=== PATIENT | female | born 1990 | race Caucasian/White ===

== ENCOUNTER 2022-08-04 13:53 | Emergency (ER) | payer OTHER ==
[~2022-08-04] VITALS: Ht 144.8 cm; Wt 99.8 kg
[2022-08-04] MEDS ORDERED: KETOROLAC 30MG VIAL (30MG/ML) IM ONE (16:00)
[2022-08-04] MEDS ORDERED: CYCL10TA16 PO (17:23)
[2022-08-04 17:30] VITALS: BP 135/96
== END 2022-08-04 17:47 | disposition home or self-care (01) ==
LOC: EDH 13:53
DX: S46.912A Strain of unspecified muscle, fascia and tendon at shoulder and upper arm level, left arm, initial encounter (principal); S93.401A Sprain of unspecified ligament of right ankle, initial encounter; S39.012A Strain of muscle, fascia and tendon of lower back, initial encounter; W18.30XA Fall on same level, unspecified, initial encounter; Y93.89 Activity, other specified; Y92.89 Other specified places as the place of occurrence of the external cause; Y99.8 Other external cause status
CPT/HCPCS: 99284; 73600; 73620; 72100; 73030; 96372; J1885